=== PATIENT | female | born 1990 | race Caucasian/White ===

== ENCOUNTER 2017-11-27 19:14 | Emergency (ER) | payer OTHER ==
[~2017-11-27] VITALS: Ht 157.5 cm; Wt 113.8 kg
[2017-11-27 19:23] VITALS: Ht 157.5 cm; Wt 113.8 kg
[2017-11-27 20:07] VITALS: BP 149/79
== END 2017-11-27 20:07 | disposition home or self-care (01) ==
LOC: ED 19:14
DX: S01.551A Open bite of lip, initial encounter (principal); R03.0 Elevated blood-pressure reading, without diagnosis of hypertension; Y04.1XXA Assault by human bite, initial encounter; Y93.89 Activity, other specified; Y92.89 Other specified places as the place of occurrence of the external cause; Y99.8 Other external cause status
CPT/HCPCS: 90715; J1885